=== PATIENT | male | born 1955 | race Caucasian/White ===

== ENCOUNTER 2017-12-25 09:36 | Outpatient (REF) | payer OTHER, SELFPAY ==
[2017-12-25 14:27] LABS: COMMENT (LAB VIEW ONLY) 37.92 mg/dL; Microalb ug/mg Crea 17.9 ug/mg Cr
== END 2017-12-25 09:56 ==
LOC: NCHCN 09:36
PROVIDERS: PCP Family Medicine; Visit Provider Family Medicine
DX: E11.9 Type 2 diabetes mellitus without complications (principal)
CPT/HCPCS: 82043; 82570

== ENCOUNTER 2018-04-18 00:44 | Outpatient (CLI) | payer OTHER, SELFPAY ==
--- NOTE | 2018-04-18 08:00 | DI.NM_ITS ---
SYMPTOMS/DIAGNOSIS: GASTROPARESIS DIABETICORUM, E11.43, INSULIN-DEPENDENT DIABETES MELLITUS WITH STOMACH PAIN AND NAUSEA AFTER EATING, INITIALLY RESPONDED TO METOCLOPRAMIDE, CONFIRM GASTROPARESIS GASTRIC EMPTYING STUDY: The examination was conducted according to the usual protocol. The patient ate 4 ounces of eggs, 2 pieces of bread and 8 ounces of water. The history is that of a diabetic with increasing abdominal pain over a number of months. 1.0 mCi of sulfur colloid was mixed into the egg breakfast. An immediate image and one- hour, two-hour and [id number] images were obtained. At one hour, there is a 29.5% residual; at two hours, there is an 8% residual; and at four hours 3.6% residual is identified. It is noted that the radioactive meal was rapidly passed from the stomach into the small bowel and the possibility of dumping syndrome is raised. At [facility], the normal range is at one hour 37-90% residual, at two hours 30-60% residual and at four hours 0-10% residual.
== END 2018-04-18 01:04 ==
PROVIDERS: PCP Family Medicine; Visit Provider Family Medicine
DX: E11.43 Type 2 diabetes mellitus with diabetic autonomic (poly)neuropathy (principal); Z79.4 Long term (current) use of insulin; R10.9 Unspecified abdominal pain; R11.0 Nausea
CPT/HCPCS: 78265

== ENCOUNTER 2018-09-02 00:07 | Outpatient (CLI) | payer OTHER, SELFPAY ==
--- NOTE | 2018-09-02 05:45 | MERGEMPI_ITS ---
*[facility]* *[facility]* [address] [place] [address] Myocardial Perfusion Imaging - SPECT Aaron protocol Date of study: 09/02/2018 *PATIENT PRESENTATION* Height: 165.1cm (65in) Blood Pressure: Weight: 78.6kg (173lb) BSA: 1.92m^2 Referring physician: Sunday Benson MD Ordering physician: Rene Austin Impressions: Normal perfusion by Tc99m Sestamibi Imaging. Summary: 1. Myocardial perfusion imaging: No myocardial perfusion defects noted. 2. The calculated left ventricular ejection fraction after stress: 64%. 3. Stress: The target heart rate was achieved. Indication: R07.9. History: REASON FOR VISIT: EXERTIONAL LEFT SIDED CHEST PAINS WITH SOME RADIATION DOWN INTO HIS LEFT ARM SINCE THE WINTER. THIS PAIN WILL SUBSIDE WITH REST. SHORTNESS OF BREATH WHEN WALKING UP STAIRS. Risk factors: OCCASIONAL MARIJUANNA SMOKER. Current tobacco use. Hypertension. Diabetes mellitus. Cholesterol: 97mg/dl. HDL: 33mg/dl. LDL: 56mg/dl. Triglycerides: 34mg/dl. ALLERGIES: NO KNOWN ALLERGIES. MEDICATIONS: METOPROLOL SUCCINATE ER 25 MG DAILY (PT HAS BEEN ASKED TO STOP TAKING THIS PILL FOR NOW) ATORVASTATIN 80 MG DAILY (PT HAS BEEN ASKED TO STOP TAKING THIS PILL FOR NOW). LISINOPRIL 10 MG DAILY. ISOSORBIDE MONONITRATE 60 MG DAILY. INSULIN GLARGINE 20 UNITS SQ Q HS. GLIMEPIRIDE 2 MG DAILY. FERROUS SULFATE 325 MG DAILY. EMPAGLIFLOZIN 25 MG DAILY. ASPIRIN 81 MG DAILY. PANTAPRAZOLE 20 MG DAILY. Imaging Technique: Protocol: Aaron protocol. Acquisition: Gated SPECT; 1 day - rest/stress. The patient was imaged in the supine position. Attenuation correction used. Isotope administration: - Rest. Tc[99m]-sestamibi. Dose: 10.5mCi. Injection time: 08:20 AM. Injection to stress time: 00:45. - Stress. Tc[99m]-sestamibi. Dose: 31.4mCi. Injection time: 10:10 AM. 1-2 min before end of exercise Baseline ECG: SINUS BRADYCARDIA. HR 59 BPM. Stress protocol: + +---+ + !Stage !HR !BP (mmHg) ! + +---+ + !Baseline supine !59 !128/80 (96) ! + +---+ + !Baseline standing !52 !140/62 (88) ! + +---+ + !Stage I; 1.7mph, 10degrees; 3 min !104!142/82 (102)! + +---+ + !Stage II; 2.5mph, 12degrees; 3 min !115!160/80 (107)! + +---+ + !Stage III; 3.4mph, 14degrees; 3 min!128!190/88 (122)! + +---+ + !Stage IV; 4.2mph, 16degrees; 3 min !136! ! + +---+ + !Peak stress !141! ! + +---+ + !Recovery; 1 min !103!170/50 (90) ! + +---+ + !Recovery; 3 min !87 !160/70 (100)! + +---+ + !Recovery; 6 min !78 !128/76 (93) ! + +---+ + * Stress results: Maximal heart rate during stress was 141bpm (89% of maximal predicted heart rate). The maximal predicted heart rate was 158bpm. The target heart rate was achieved. The rate-pressure product for the peak heart rate and blood pressure was 73158ki Hg/min. Stress ECG: TREADMILL PORTION OF STRESS TEST ENDED IN 10 MINUTES & 10 SECONDS DUE TO FATIGUE. NORMAL HEART RATE AND BLOOD PRESSURE RESPONSE TO EXERCISE. MAX HR = 141 % OF TARGET = 89 NO ECTOPY APPROXIMATE METS ACHIEVED = 11.43 LEFT SIDED CHEST PAIN WITH RADIATION INTO LEFT ARM DESCRIBED A 4 OUT OF 10 DURING PEAK EXERCISE. CHEST PAIN DOWN TO 2 OUT OF 10 NOW RADIATING INTO BOTH LEFT AND RIGHT ARMS AFTER 2 MINUTES OF RECOVERY PERIOD. CHEST PAIN SUBSIDED AT 3 MINUTES RECOVERY PERIOD. NO SIGNIFICANT ST SEGMENT CHANGES. ABOVE AVERAGE FUNCTIONAL CAPACITY FOR EXERCISE. Myocardial perfusion: Imaging information: gated. No myocardial perfusion defects noted. Ventricular Function (Wall Motion): The calculated left ventricular ejection fraction after stress: 64%. Study data: Sunday Benson MD supervised and was readily available during the procedure. This study was interpreted by [facility]. Study status: Routine. Consent: The risks, benefits, and alternatives to the procedure were explained to the patient and informed consent was obtained. Procedure: Initial setup. A baseline ECG was recorded. Surface ECG leads and manual cuff blood pressure measurements were monitored. Heart sounds: Normal. Lung sounds: Normal. Treadmill exercise testing was performed using the Aaron protocol. Study completion: All catheters inserted during the procedure were removed. The patient tolerated the procedure well and was discharged from the lab. Discharge: The patient left the laboratory in stable condition. Birthdate: Patient birthdate: 1955. Sex: Gender: male. Study date: Study date: 09/02/2018. Study time: 00:01 AM. Electronically signed by Sunday Benson MD 09/02/2018 18:06
== END 2018-09-02 00:27 ==
PROVIDERS: PCP Family Medicine; Visit Provider Student in an Organized Health Care Education/Training Program
DX: R07.9 Chest pain, unspecified (principal); R06.02 Shortness of breath
CPT/HCPCS: 78452; 93017

== ENCOUNTER 2018-10-08 06:55 | Day surgery (SDC) | payer OTHER, SELFPAY ==
--- NOTE | 2018-10-08 06:42 | W.COLOREPORT ---
Date of service: 10/08/18 Time of Service: 08:42 Colonoscopy Report Date of procedure: 10/08/18 Pre-op diagnosis general: Colon Cancer screening for + Cologuard Post-op diagnosis procedure note: other (? polyp in the transverse colon, diverticulosis) Procedure: Colonoscopy with bx Surgeon: Taina Kwon Anesthesia proc note operative: other (General/ ASA 2/Mary Lou Anthony, HUDSON) Estimated blood loss (mL): 2 Pathology: other (Transverse colon bx) Complications: None Disposition: same day Indications: Mr. Willett is a pleasant 63 year old male seen in the office for a colonoscopy. He had a positive Cologuard test. He has no family history of colon cancer that he is aware of. Risks, benefits and complications have been reviewed. Complications include but are not limited to bleeding, pain, perforation, missed small lesion/polyp, sore throat, aspiration and adverse reaction to the medications. Questions were entertained and answered to their satisfaction and they wished to proceed. No guarantees were given or implied. Prep: Miralax/Dulcolax Procedure Start Time: 08:42 Procedure End Time: 09:12 Retraction Time: 18 minutes Findings: In the transverse colon there was a prominent area ? polyp and this was removed with forceps. Mild diverticulosis noted in the descending and sigmoid colon Procedure Description: After informed consent was obtained the patient was taken to the procedure room and placed in a left decubitous position. Monitors were applied and a time out was done. The patients name, date of , procedure, allergies to medications and metal in their body was reviewed. The patient was then sedated. Once sedated and comfortable a rectal exam was done. External exam was normal. Internal exam revealed a normal sphincter tone and no palpable masses. Prostate felt smooth. The scope was then introduced and retro-flexed. No internal hemorrhoids, polyps or masses were identified. The scope was then advanced to the cecum with some difficulty due to tortuousity. The TI and appendiceal orifice were identified. The prep was adequate. The scope was then slowly retracted over 18 minutes back into the rectum. A biopsy was done of a prominent area in the transverse colon on a fold. The scope was removed and the patient was woken up and taken back to Same day surgery in stable condition. The patient tolerated the procedure well and there were no immediate complications. Follow up: The patient should follow up in 3-5 years unless they develop changes in bowel habits or other new gastrointestinal complaints.
--- NOTE | 2018-10-08 06:45 | W.PM.DSUDISC ---
Discharge Plan Disposition Patient Disposition: HOME Condition: Good Discharge Details Reason For Visit: Colon Cancer Screening Attending Provider: Taina Kwon Primary Care Provider: Naman Mckeon Home Meds and New Rx's Prescriptions: Continued Basaglar KwikPen U-100 Insulin 100 unit/mL (3 mL) insulin pen 36 unit SC HS RF: 0 Jardiance 25 mg tablet 25 mg PO DAILY RF: 0 aspirin 81 MG tablet,chewable 81 mg PO DAILY RF: 0 glimepiride 2 MG tablet 4 mg PO DAILY RF: 0 lisinopril 10 MG tablet 10 mg PO DAILY RF: 0 acetaminophen [Mapap Extra Strength] 500 MG tablet 1,000 mg PO Q6H PRN PRNRF: 0 ferrous sulfate 325 MG tablet 325 mg PO DAILY Qty: 100 RF: 0 atorvastatin 80 mg Tablet 80 mg PO QHS RF: 0 Discontinued metoprolol succinate 25 mg tablet extended release 24 hr 25 mg PO DAILY RF: 0 bisacodyl [Dulcolax (bisacodyl)] 5 mg tablet,delayed release (DR/EC) 5 mg PO ONCE Qty: 4 RF: 0 polyethylene glycol 3350 17 gram powder in packet 255 g PO DAILY Qty: 15 RF: 0 isosorbide mononitrate 60 MG tablet extended release 24 hr 60 mg PO DAILY RF: 0 Discharge Instructions Instructions: Colonoscopy (GEN), Diverticulosis (ED) Additional Instructions: Findings: ? polyp Diverticulosis Follow up: 3-5 years Please call if you develop: fevers >101.5 Nausea or Vomiting Abdominal pain that is not transient DAY SURGERY UNIT POST COLONOSCOPY INSTRUCTIONS 1. Because there will be medication in your system for the next 24 hours, you may feel a little sleepy. Your coordination will be affected. Therefore: a. Do not drive or operate dangerous equipment for 24 hours. b. Do not drink alcohol beverages for 24 hours (not even beer). c. Plan to go home and rest for the day. 2. Generally there are no restrictions on your activity after a day or so has gone by, but you may feel a bit fatigued for a few days. 3 After you arrive home you may have a light meal and return to a normal diet as you can tolerate it without feeling sick to your stomach. 4. After surgery, you may feel pain or discomfort. This should be only transient, but if it persists please contact your doctor. 5. If there are any questions regarding the findings of your procedure, please feel free to contact your doctor. 6. If you are unable to contact your doctor with a problem, contact the hospital at [phone]. 7. Continue all your regular medications unless directed otherwise. I understand the above instructions and have no questions. Signature of Patient or Responsible Adult Escort Date/Time Name of Responsible Adult Escort Signature of Nurse Date/Time Activity:: Activity as Tolerated Diet:: High Fiber diet Discharge Orders Discharge Orders: Discharge Order (Routine); Ordered 10/08/18 Ordered By: Taina Kwon DS: Diagnosis Discharge Diagnosis (1) History of colonoscopy: Status: Chronic (2) Diverticulosis large intestine w/o perforation or abscess w/o bleeding: Status: Acute
[2018-10-08 07:39] VITALS: BP 122/74; PULSE 60; RESP 14; TEMP 35.1; O2SAT 100
[2018-10-08] MEDS: Lactated Ringers 1,000 ML 80 ML IV (08:28)
--- NOTE | 2018-10-08 09:05 | BOWEL_PTH ---
PATIENT: Vincent Willett LOC: [facility] U#:[id number] AGE/SX: 63/M ROOM: RE10/08/[address]: Taina Kwon MD : 1955 BED: DIS: 10/08/2018 SPEC #: [id number] RECD: 10/08/18 12:51 STATUS: JUSTINA REQ #: [id number] VALERIO: 10/08/18 09:[address]: Taina Kwon DEPT: Surgical Specimen RECD BY: Cherry Banks ENTERED: 10/08/18 12:52 SP TYPE: Bowel OTHR DR: Naman Mckeon Tissues: 1 - BIOPSY BOWEL Procedures: GROSS AND MICRO LEVEL 4 Comments: [id number]
[2018-10-08 10:20] VITALS: BP 126/76; PULSE 71; RESP 16; TEMP 35.7; O2SAT 100
== END 2018-10-08 10:20 | disposition home or self-care (01) ==
PROVIDERS: PCP Family Medicine; Visit Provider Surgery
PROC: 0DJD8ZZ Inspection of Lower Intestinal Tract, Via Natural or Artificial Opening Endoscopic (ICD-10-PCS; CPT 45378; principal; 2018-10-08 08:30)
DX: R19.5 Other fecal abnormalities; D12.3 Benign neoplasm of transverse colon; K63.89 Other specified diseases of intestine; E11.9 Type 2 diabetes mellitus without complications; Z79.4 Long term (current) use of insulin; I10 Essential (primary) hypertension
CPT/HCPCS: 45380; 88305

== ENCOUNTER 2019-01-14 18:12 | Outpatient (REF) | payer OTHER, SELFPAY ==
[2019-01-14 19:58] LABS: ALT 66 U/L (16-63); AST 25 U/L (15-37); Albumin 4.3 g/dL (3.4-5.0); Alkaline Phosphatase 80 U/L (46-116); Anion Gap 9.7 mmol/L (3-11); BUN 22 mg/dL (7-18); Bilirubin, Total 0.5 mg/dL (0.2-1.0); CO2 27.3 mmol/L (21.0-32.0); CREATININE 0.97 mg/dL (0.70-1.30); Calcium 9.1 mg/dL (8.5-10.1); Chloride 102 mmol/L (98-107); Glucose 129 mg/dL (70-100); Potassium 4.3 mmol/L (3.5-5.1); Sodium 139 mmol/L (136-145); Total Protein 8.2 g/dL (6.4-8.2)
== END 2019-01-14 18:32 ==
LOC: NCHCN 18:12
PROVIDERS: PCP Family Medicine; Visit Provider Family Medicine
DX: E11.9 Type 2 diabetes mellitus without complications (principal); I10 Essential (primary) hypertension
CPT/HCPCS: 80053

== ENCOUNTER 2019-05-27 15:24 | Outpatient (REF) | payer BC, SELFPAY ==
[2019-05-27 18:41] LABS: HCT 44.1 % (40.0-50.0); HGB 14.9 g/dL (13.5-17.5); Mean Corp. HGB Concentration 33.8 g/dL (32.0-36.0); Mean Corpuscular Hemoglobin 30.3 pg (27.0-33.0); Mean Corpuscular Volume 89.8 fL (80-95); Mean Platelet Volume 14.1 fL (8.0-11.0); Platelet Count 183 x1000/uL (130-400); RBC 4.91 m/cumm (4.50-6.00); RBC Distribution Width 12.6 % (11.8-14.1); White Blood Cell Count 7.17 k/cumm (4.4-10.8)
[2019-05-27 19:26] LABS: ALT 58 U/L (16-63); AST 23 U/L (15-37); Albumin 4.1 g/dL (3.4-5.0); Alkaline Phosphatase 68 U/L (46-116); Anion Gap 10.2 mmol/L (3-11); BUN 24 mg/dL (7-18); Bilirubin, Total 0.5 mg/dL (0.2-1.0); CO2 24.8 mmol/L (21.0-32.0); Calcium 8.9 mg/dL (8.5-10.1); Calculated LDL 61 mg/dL (<100); Chloride 105 mmol/L (98-107); Cholesterol 103 mg/dL (<200); Glucose 80 mg/dL (74-106); HDL Cholesterol 31 mg/dL (40-60); Sodium 140 mmol/L (136-145); TSH (W/Ref FT4) 0.85 uIU/mL (0.36-3.74); Total Protein 7.8 g/dL (6.4-8.2); Triglyceride 57 mg/dL (<150); Vitamin B12 717 pg/mL (193-986)
[2019-05-29 09:40] LABS: Hepatitis C Ab w Rflx HCV PCR Negative (Negative)
[2019-05-29 10:24] LABS: Hepatitis B Surface Ag Negative (Negative)
== END 2019-05-27 15:44 ==
LOC: NCHCN 15:24
PROVIDERS: PCP Family Medicine; Visit Provider Family Medicine
DX: R41.3 Other amnesia (principal); Z00.00 Encounter for general adult medical examination without abnormal findings; Z11.59 Encounter for screening for other viral diseases; R74.8 Abnormal levels of other serum enzymes; E11.9 Type 2 diabetes mellitus without complications; I25.10 Atherosclerotic heart disease of native coronary artery without angina pectoris
CPT/HCPCS: 80053; 80061; 85027; 86803; 87340; 82607; 84443

== ENCOUNTER 2019-07-25 14:02 | Emergency (ER) | payer BC, SELFPAY ==
[2019-07-25 14:08] VITALS: BP 157/99; PULSE 96; RESP 16; TEMP 36.6; O2SAT 97
[2019-07-25 14:38] LABS: Bilirubin Negative (Negative); Blood Negative (Negative); Clarity Clear (Clear); Glucose 500 mg/dL (Negative); Ketones Negative (Negative); Leukocyte Esterase Negative (Negative); Nitrite Negative (Negative); Specific Gravity 1.015 (1.005-1.025); Urobilinogen 0.2 EU/dL (Up TO 0.2); pH 5.5 (5-8)
--- NOTE | 2019-07-25 14:42 | W.ED.GENAD ---
Discharge Plan Disposition Patient Disposition: HOME Condition: Stable Discharge Details Chief Complaint: Abd Prob Clinical Impression: Abdominal pain, Diverticulosis Primary Care Provider: Naman Mckeon ED Provider: Kostas Johnson Home Meds and New Rx's Prescriptions: No Action Jardiance 25 mg tablet 25 mg PO DAILY RF: 0 Basaglar KwikPen U-100 Insulin 100 unit/mL (3 mL) insulin pen 30 unit SC HS RF: 0 lisinopril 10 mg tablet 5 mg PO DAILY RF: 0 metoprolol succinate 25 mg capsule,sprinkle,ER 24hr 12.5 mg PO DAILY RF: 0 atorvastatin 80 mg tablet 40 mg PO QHS RF: 0 aspirin 81 MG tablet,chewable 81 mg PO DAILY RF: 0 glimepiride 2 MG tablet 4 mg PO DAILY RF: 0 acetaminophen [Mapap Extra Strength] 500 MG tablet 1,000 mg PO Q6H PRN PRNRF: 0 Discharge Instructions Instructions: Abdominal Pain (ED) Additional Instructions: At this time your CT does not show any emergent process. It does show that you have diverticulosis without acute diverticulitis. There is moderately excessive colonic stool content. Like we discussed, [id number] stool softeners may be beneficial as well as a diet high in fiber and increasing your liquids. Please watch for new or worsening symptoms and return to the ER for any concerns. I do recommend that you reach back out to your surgical team on Sunday to discuss your ongoing discomfort. I also recommend speaking with your primary care provider on Sunday for prompt outpatient reevaluation Referrals: Maureen Delarosa DO [OSTEOPATHIC DOCTOR] - Discharge Data Discharge Date/Time-TO BE ENTERED AT DEPARTURE: 07/25/19 18:34 Medical Decision Making <TISH Bullock - Last Filed: 07/26/19 11:25> Patient is a pleasant 64-year-old male presents today with chief complaint of left lower quadrant pain. He reports that he has had this pain intermittently for the past year. He does have a history of inguinal hernia repair he believes with mesh placement. States that this approximate 30 years ago. States the pain does come on when he is mobile. States that over the past few days the pain has become more persistent. States that he is also had associated diminished appetite. He denies any fevers or chills. States the pain is now along the entirety of the left side more so than just in the left inguinal area. States the pain does radiate into the left testicle. Denies any increased frequency, urgency. No hematuria. Denies any dysuria. Aside from the 2 hernia repairs in the abdomen, no previous abdominal surgeries. Denies any testicular trauma. Was evaluated by general surgery prior to arrival who was concerned for potential diverticulitis is in here for further evaluation. On exam, patient is resting comfortably. He is quite tender on the left lower side as well as the left CVA. No peritoneal findings. No rebound or guarding. He has noticed mild tenderness in the left scrotu but no erythema, warmth or swelling. No palpable area of hernia. Patient is primarily concerned that there may be something wrong with mesh of his previous hernia repair as the pain is located over the inguinal hernia but also extends upward more towards the left lower quadrant. At the end of my shift, Kostas Johnson PA-C with imaging and labs pending. <TISH Strickland - Last Filed: 07/25/19 18:57> I assumed care of this 64-year-old gentleman at shift change from [facility]. Patient has had chronic left lower quadrant discomfort ever since he had a hernia repair however he reports to me worsening over the past 4 weeks. He was seen by surgery today for evaluation of this discomfort and sent to the ER for further work-up as concern for diverticulitis. Please see initial HPI for full presentation. Patient appears well, nontoxic, no acute distress. Head normocephalic, moist mucous membranes, lungs clear to auscultation, heart regular rate and rhythm, abdomen is soft, bowel sounds equal and present throughout. There is diffuse mild left lower quadrant and flank discomfort but there is no guarding rebound or rigidity. His genitals appear normal on inspection, he does have mild left testicle discomfort to palpation. I am unable to palpate an obvious hernia. Cremasterics reflex present bilaterally. Laboratory values reveal a white count of 8.19. Lipase is minimally elevated at 400 however his examination is not consistent with acute pancreatitis. Urinalysis unremarkable except for [address] imaging unremarkable for emergent process. I discussed the findings with patient. He denies drinking alcohol and denies a history of pancreatitis. Patient does report that he has been constipated and been taking [id number]-[id number] stool softeners for that. Discussed that he has diverticulosis without evidence of diverticulitis or any obvious emergent surgical etiology. We discussed options. He reports that currently he is feeling improvement and is comfortable discharge home. He does believe that his pain stems from his previous surgery and related to his previous inguinal hernia and/or mesh. Patient is comfortable discharge at this time and we discussed the importance of outpatient surgical follow-up, recommend that he contact his surgical team on Sunday and he was encouraged to return to the ER for new or worsening symptoms. Medical Records Medical records reviewed: Yes I reviewed the patient's medical records. Imaging Data Radiologic Study: Attestation: I personally reviewed and interpreted this imaging study as follows: Imaging: CT Scan Radiologist's impression: CT abdomen and pelvis with contrast read by virtual radiology as negative for acute abdominal pelvic pathology. There was diffuse colonic diverticulosis without diverticulitis. Moderately excessive colonic stool content. No evidence of appendicitis. The prostate demonstrates moderate nonspecific enlargement, the seminal vesicles are normal. Lab Data Lab results reviewed: Yes I reviewed the patient's lab results. Lab results narrative: Laboratory Tests Range/Units 07/25/19 07/25/19 07/25/19 14:30 14:43 14:43 WBC (4.4-10.8) k/cumm 8.19 RBC (4.50-6.00) m/cumm 5.44 Hgb (13.5-17.5) g/dL 16.6 Hct (40.0-50.0) % 46.8 MCV (80-95) fL 86.0 MCH (27.0-33.0) pg 30.5 MCHC (32.0-36.0) g/dL 35.5 RDW (11.8-14.1) % 12.3 Plt Count (130-400) x1000/uL 189 MPV (8.0-11.0) fL 12.8 H Immature Gran % % 0.1 Neutrophils % 59.1 Lymphocytes % 30.2 Monocytes % 9.3 Eosinophils % 1.1 Basophils % 0.2 Absolute Neutrophils (1.2-6.7) k/cumm 4.84 Absolute Lymphocytes (1.2-3.4) k/cumm 2.47 Absolute Monocytes (0.11-0.7) k/cumm 0.76 H Absolute Eosinophils (0.0-0.7) k/cumm 0.09 Absolute Basophils (0.0-0.2) k/cumm 0.02 Sodium (136-145) mmol/L 136 Potassium (3.5-5.1) mmol/L 4.1 Chloride (98-107) mmol/L 99 Carbon Dioxide (21.0-32.0) mmol/L 26.0 Anion Gap (3-11) mmol/L 11.0 BUN (7-18) mg/dL 26 H Creatinine (0.70-1.30) mg/dL 1.01 Estimated GFR/1.73 m2 (mL/min/1.73m2) >= 60.00 Glucose (74-106) mg/dL 251 H Calcium (8.5-10.1) mg/dL 9.4 Magnesium (1.8-2.4) mg/dL 2.2 Total Bilirubin (0.2-1.0) mg/dL 0.4 AST (15-37) U/L 19 ALT (16-63) U/L 54 Alkaline Phosphatase (46-116) U/L 79 Total Protein (6.4-8.2) g/dL 8.8 H Albumin (3.4-5.0) g/dL 4.3 Lipase (73-393) U/L 400 H Urine Color (Yellow) Yellow Urine Clarity (Clear) Clear Urine pH (5-8) 5.5 Ur Specific Rosebud (1.005-1.025) 1.015 Urine Protein (Negative) mg/dL Negative Urine Ketones (Negative) mg/dL Negative Urine Blood (Negative) Negative Urine Nitrite (Negative) Negative Urine Bilirubin (Negative) Negative Urine Urobilinogen (Up TO 0.2) EU/dL 0.2 Ur Leukocyte Esterase (Negative) Negative Urine Glucose (Negative) mg/dL 500 H Range/Units 07/25/19 15:02 WBC (4.4-10.8) k/cumm RBC (4.50-6.00) m/cumm Hgb (13.5-17.5) g/dL Hct (40.0-50.0) % MCV (80-95) fL MCH (27.0-33.0) pg MCHC (32.0-36.0) g/dL RDW (11.8-14.1) % Plt Count (130-400) x1000/uL MPV (8.0-11.0) fL Immature Gran % % Neutrophils % Lymphocytes % Monocytes % Eosinophils % Basophils % Absolute Neutrophils (1.2-6.7) k/cumm Absolute Lymphocytes (1.2-3.4) k/cumm Absolute Monocytes (0.11-0.7) k/cumm Absolute Eosinophils (0.0-0.7) k/cumm Absolute Basophils (0.0-0.2) k/cumm Sodium (136-145) mmol/L Potassium (3.5-5.1) mmol/L Chloride (98-107) mmol/L Carbon Dioxide (21.0-32.0) mmol/L Anion Gap (3-11) mmol/L BUN (7-18) mg/dL Creatinine (0.70-1.30) mg/dL Estimated GFR/1.73 m2 (mL/min/1.73m2) Glucose (74-106) mg/dL Calcium (8.5-10.1) mg/dL Magnesium (1.8-2.4) mg/dL Total Bilirubin (0.2-1.0) mg/dL AST (15-37) U/L ALT (16-63) U/L Alkaline Phosphatase (46-116) U/L Total Protein (6.4-8.2) g/dL Albumin (3.4-5.0) g/dL Lipase (73-393) U/L Urine Color (Yellow) Cancelled Urine Clarity (Clear) Cancelled Urine pH (5-8) Cancelled Ur Specific Rosebud (1.005-1.025) Cancelled Urine Protein (Negative) mg/dL Cancelled Urine Ketones (Negative) mg/dL Cancelled Urine Blood (Negative) Cancelled Urine Nitrite (Negative) Cancelled Urine Bilirubin (Negative) Cancelled Urine Urobilinogen (Up TO 0.2) EU/dL Cancelled Ur Leukocyte Esterase (Negative) Cancelled Urine Glucose (Negative) mg/dL Cancelled HPI <TISH Bullock - Last Filed: 07/26/19 11:25> General Mode of arrival: ambulatory. Date/Time Provider Initiated Documentation: 07/25/19 14:12. Limitations to Documentation: no limitations. Information obtained by: patient and RN notes reviewed. History of Present Illness 64 year old M presents to the emergency department with the chief complaint of Left lower quadrant pain, described as moderate, with intensity rated at 5. Quality is described as aching, and is localized to the abdomen. Patient reports no radiation. Patient started experiencing this year(s) (1) and it has been intermittent (Increased in recent days with more persistent pain and diminished appetite). No relieving factors improve symptom(s), Movement worsens symptoms . Patient notes loss of appetite; denies chest pain, cough, fever/chills, headaches, nausea/vomiting, rash, shortness of breath and weakness. Patient did receive the following treatments prior to arrival, none Related Data Home Medications Medication Instructions Recorded Confirmed aspirin 81 mg PO DAILY 05/28/12 07/25/19 glimepiride 4 mg PO DAILY 07/14/15 07/25/19 acetaminophen [Mapap Extra 1,000 mg PO Q6H PRN PRN tab 05/20/16 07/25/19 Strength] empagliflozin 25 mg tablet 25 mg PO DAILY 08/21/18 07/25/19 atorvastatin 80 mg tablet 40 mg PO QHS tab 07/25/19 07/25/19 insulin glargine 100 unit/mL (3 30 unit SC HS ml 07/25/19 07/25/19 mL) subcutaneous pen lisinopril 10 mg tablet 5 mg PO DAILY tab 07/25/19 07/25/19 metoprolol succinate 25 mg capsule 12.5 mg PO DAILY cap 07/25/19 07/25/19 sprinkle, ext. release 24 hr Previous Rx's Medication Instructions Recorded acetaminophen [Mapap Extra 1,000 mg PO Q6H PRN PRN tab 05/20/16 Strength] Allergies Allergy/AdvReac Type Severity Reaction Status Date / Time No Known Allergies Allergy Unverified 07/25/19 14:17 General Stated Complaint: Abd Prob ALINA: 3 Review of Systems <TISH Bullock - Last Filed: 07/26/19 11:25> Constitutional Constitutional: Reports as per HPI, Denies chills, Denies fatigue, Denies fever(s) and Denies headache(s) ENT Ears, Nose, Mouth, and Throat: Denies headache(s) Cardiovascular Cardiovascular: Reports as per HPI, Denies chest pain and Denies dyspnea Respiratory Respiratory: Reports as per HPI, Denies cough and Denies dyspnea Gastrointestinal Gastrointestinal: Reports as per HPI Genitourinary Genitourinary: Denies system reviewed and no additional complaints, except as documented (patient denies any change in urinary habits) Musculoskeletal Musculoskeletal: Reports as per HPI and Denies back pain Integumentary/Breasts Skin/Breast: Reports as per HPI and Denies rash Neurologic Neurologic: Reports as per HPI and Denies headache(s) Endocrine Endocrine: Denies fatigue PFSH <TSIH Bullock - Last Filed: 07/26/19 11:25> Medical History Anemia Angina pectoris, unspecified (Chronic) Atherosclerotic coronary vascular disease 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) Balanitis (Acute) BPH loc w urin obs/LUTS (Acute) Cervical disc disease with myelopathy (Acute) Chronic GERD (Acute) Depression (Chronic) Diabetes mellitus Diverticulosis large intestine w/o perforation or abscess w/o bleeding (Acute) Dyspepsia (Acute) Dysuria (Acute) Elevated liver enzymes (Acute) Enlarged prostate (Acute) History of angina History of MRSA infection (Acute) HTN (hypertension) Hyperlipidemia (Acute) Liver nodule (Acute) LLQ abdominal pain (Acute) Memory impairment (Acute) Mixed hyperlipidemia Osteoarthritis (Chronic) Restless leg (Acute) Sleep disorder (Acute) Tubular adenoma of colon (Acute) Surgical History Amputation (07/14/15) RIGHT INDEX FINGER/DR. ARTEAGA History of cardiac catheterization (Chronic) History of colonoscopy (Chronic ~10/08/18) Repair of inguinal hernia Family History (Updated 10/04/18 @ 13:39 by Precious Brooks RN) Other Diabetes Social History Smoking/Tobacco Use Status: Never Alcohol Intake: current Alcohol Intake frequency: holidays/special occasions only Alcohol type: beer Drug use: Occasionally Substance use type: marijuana Details: patient states he uses for pain management. Do you feel safe at home: Yes Do you feel safe in your relationship?: Yes Exam <TISH Bullock - Last Filed: 07/26/19 11:25> Const General: cooperative, healthy appearing, comfortable, no acute distress and well developed Nutritional Appearance: average body habitus and well nourished Orientation: alert and awake [facility] Head: normal to inspection Mouth: moist mucous membranes Resp Effort & Inspection: normal respiratory effort, able to speak in complete sentences and no respiratory distress Auscultation: clear to auscultation bilaterally, no rales, no rhonchi and no wheezes Cardio Rate: regular rate Rhythm: regular rhythm Heart Sounds: S1 normal and S2 normal GI Inspection: normal to inspection, no edema, non-distended, no obesity, no visible herniation and no visible pulsation Palpation: soft, no hepatosplenomegaly, not firm, no guarding, no hernias, no masses, not rigid and tender in the LLQ; obturator sign negative, psoas sign negative and with no rebound tenderness Percussion: normal to percussion Auscultation: normal bowel sounds Male General Exam: Yes normal external exam, No ecchymosis, No edema, No erythema, No inguinal lymphadenopathy, No lacerations and No lesions Penis: normal penis Meatus: meatus normal Scrotum: scrotum normal, cremasteric reflex present, no ecchymosis, not edematous, not erythematous, no masses and no scrotal swelling Testes: normal, testicular lie normal, not enlarged, no epidiymal masses, no testicular mass, no testicular swelling and testicular tenderness (mild left testicular pain) Back/Spine/Pelvis Back: CVA tenderness (left) Skin General skin exam: no rashes or lesions noted Trauma: no lacerations or abrasions Neuro General: patient alert and patient awake Cognition: normal cognition Speech: speech normal Gait: normal gait Psych Appearance: grossly normal and well kempt Mental Status: mental status grossly normal Speech and Movement: speech and movement normal Course <TISH Bullock - Last Filed: 07/26/19 11:25> Vital Signs Vital signs: Vital Signs Temperature 36.6 C 07/25/19 14:08 Pulse 96 H 07/25/19 14:08 Respiratory Rate 16 07/25/19 14:08 Blood Pressure 157/99 H 07/25/19 14:08 Pulse Oximetry 97 07/25/19 14:08 Temperature 36.6 C 07/25/19 14:08 Temperature Source Skin 07/25/19 14:08 Pulse 96 H 07/25/19 14:08 Respiratory Rate 16 07/25/19 14:08 Respiratory Effort 07/25/19 14:15 Blood Pressure 157/99 H 07/25/19 14:08 Blood Pressure Position Sitting 07/25/19 14:08 Pulse Oximetry 97 07/25/19 14:08 Oxygen Delivery Method Room Air 07/25/19 14:08 Oxygen Flow Rate 0 07/25/19 14:08 Pain Level 5 07/25/19 14:08 Sign Out <TISH Bullock - Last Filed: 07/26/19 11:25> Sign Out Data: Sign Out Comment: Care transition to [place] Johnson PA-C with pending imaging and labs. Last updated by Lenora Doshi PA at 07/25/19 16:12
--- NOTE | 2019-07-25 14:45 | DI.CT_ITS ---
EXAM: CT ABDOMEN PELVIS W CLINICAL HISTORY: LLQ pain TECHNIQUE: Imaging Protocol: Axial computed tomography images with coronal and sagittal reformatted images were created and reviewed CONTRAST MATERIAL: Intravenous: Omnipaque 350 Contrast volume:100 mL Oral: Yes COMPARISON: UPPER ABD W/WO CONTRAST(P) from 05/17/2017 FINDINGS: ABDOMEN: Lung Bases: Normal where visualized. Liver: Normal density. No measurable mass. Portal, Superior Mesenteric, and Splenic Veins: Unremarkable. Gallbladder and Biliary Tract: No radiodense calculus or dilation. Pancreas: Normal density, no abnormal calcifications or inflammatory process. Spleen: Normal. Adrenals: No masses seen. Kidneys: Normal size, contour and axis. No radiodense stones or obstructive uropathy. No masses seen. Abdominal Aorta: Abdominal portion non-dilated. Mild atherosclerosis. Bowel: No obstruction or bowel wall thickening. Appendix is unremarkable. Peritoneal Cavity: No ascites, collection or mesenteric inflammatory response. Lymph Nodes: Within normal limits. Bones: Degenerative changes are present particularly at the L5-S1 disc space. Soft Tissues: Small fat containing right inguinal hernia. PELVIS: Bladder: Symmetric distention, no gross wall thickening. Reproductive Organs: Moderate enlarged prostate gland. Lymph Nodes: Within normal limits. Bones: Degenerative changes are present. IMPRESSION: No acute abdominal or pelvic process. RADIATION DOSE DELIVERED: Total DLP DATA REPOSITORY: All CT scans at this facility are submitted to the National Radiology Data Registry (NRDR) Dose Index Registry (DIR) with the [employer] (ACR). RADIATION OPTIMIZATION: All CT scans at this facility use at least one of these dose optimization te chniques: automated exposure control; mA and/or kV adjustment per patient size (includes targeted exa ms where dose is matched to clinical indication); or iterative reconstruction.
[2019-07-25] MEDS: Normal Saline 1,000 ML 1000 ML IV (15:09)
[2019-07-25 16:01] LABS: Abs Immature Grans 0.01 k/cumm (0.0-0.09); Absolute Basophil Count 0.02 k/cumm (0.0-0.2); Absolute Eosinophil Count 0.09 k/cumm (0.0-0.7); Absolute Lymphocyte Count 2.47 k/cumm (1.2-3.4); Absolute Monocyte Count 0.76 k/cumm (0.11-0.7); Absolute Neutrophil Count 4.84 k/cumm (1.2-6.7); Basophils % 0.2; Eosinophils % 1.1; HCT 46.8 % (40.0-50.0); HGB 16.6 g/dL (13.5-17.5); Immature Grans % 0.1 %; Lymphocytes % 30.2; Mean Corp. HGB Concentration 35.5 g/dL (32.0-36.0); Mean Corpuscular Hemoglobin 30.5 pg (27.0-33.0); Mean Platelet Volume 12.8 fL (8.0-11.0); Monocytes % 9.3; Neutrophils % 59.1; Platelet Count 189 x1000/uL (130-400); RBC 5.44 m/cumm (4.50-6.00); RBC Distribution Width 12.3 % (11.8-14.1); White Blood Cell Count 8.19 k/cumm (4.4-10.8)
[2019-07-25 16:17] VITALS: BP 139/72; PULSE 67; RESP 18; O2SAT 97
[2019-07-25 16:17] LABS: ALT 54 U/L (16-63); AST 19 U/L (15-37); Albumin 4.3 g/dL (3.4-5.0); Alkaline Phosphatase 79 U/L (46-116); BUN 26 mg/dL (7-18); Bilirubin, Total 0.4 mg/dL (0.2-1.0); CREATININE 1.01 mg/dL (0.70-1.30); Calcium 9.4 mg/dL (8.5-10.1); Chloride 99 mmol/L (98-107); Glucose 251 mg/dL (74-106); Lipase 400 U/L (73-393); Magnesium 2.2 mg/dL (1.8-2.4); Potassium 4.1 mmol/L (3.5-5.1); Sodium 136 mmol/L (136-145); Total Protein 8.8 g/dL (6.4-8.2)
[2019-07-25] MEDS: Breeza Beverage 473 ML BTL PO ×2 (16:55→16:56)
[2019-07-25] MEDS: Omnipaque 350 MG/ML 50 ML BTL PO (16:55)
[2019-07-25] MEDS: Omnipaque 350 MG/ML 100 ML BTL IJ (16:56)
[2019-07-25] MEDS: Normal Saline - Diluent 50 ML VIAL IV (16:57)
--- NOTE | 2019-07-25 17:00 | DI.VRAD_ITS ---
PROCEDURE INFORMATION: Exam: CT Abdomen And Pelvis With Contrast Exam date and time: 07/25/2019 2:58 PM Age: 64 years old Clinical indication: Pain; Other: Llq TECHNIQUE: Imaging protocol: Computed tomography of the abdomen and pelvis with intravenous contrast. Radiation optimization: All CT scans at this facility use at least one of these dose optimization techniques: automated exposure control; mA and/or kV adjustment per patient size (includes targeted exams where dose is matched to clinical indication); or iterative reconstruction. Contrast material: OMNIPAQUE 350; Contrast volume: 100 ml; Contrast route: IV; Other contrast: Oral, Omnipaque 350 + Breeza, 800 ml of Breeza, 50 ml of Omnipaque 350; COMPARISON: CT ABD PELVIS WITH CONTRAST 01/18/2015 10:07 AM FINDINGS: Lungs: The visualized portions of the lung bases demonstrate no acute disease. Liver: There is moderate enlargement of the liver. There is a diffuse decrease in hepatic parenchymal density, consistent with fatty infiltration. No acute liver pathology. No concerning liver lesions. Gallbladder and bile ducts: Normal. No calcified stones. No ductal dilation. Pancreas: Normal. No ductal dilation. Spleen: Normal. No splenomegaly. Adrenals: Normal. No mass. Kidneys and ureters: Normal. No hydronephrosis. Stomach and bowel: No bowel wall thickening, obstruction, or other acute pathology. Diffuse colonic diverticulosis is present. There is moderately excessive colonic stool content. Appendix: No evidence of appendicitis. Intraperitoneal space: Unremarkable. No free air. No significant fluid collection. Vasculature: The vasculature demonstrates diffuse mild atherosclerotic calcification. Lymph nodes: Unremarkable. No enlarged lymph nodes. Bladder: Unremarkable as visualized. Reproductive: The prostate demonstrates moderate nonspecific enlargement. The seminal vesicles are normal. Bones/joints: No acute skeletal pathology. Moderate multilevel degenerative changes of the spine, as manifested by multilevel anterior osteophytes and multilevel decrease in intervertebral disc space. Soft tissues: Small fat containing right inguinal hernia. IMPRESSION: Negative for acute abdominopelvic pathology. Dictated and Authenticated by: Maurilio Corea MD. Ordering:TOMMY Cooley MD
== END 2019-07-25 18:34 | disposition home or self-care (01) ==
PROVIDERS: Physician Assistant; Emergency Provider Physician Assistant; PCP Family Medicine
DX: R10.32 Left lower quadrant pain (principal); K57.30 Diverticulosis of large intestine without perforation or abscess without bleeding; E11.9 Type 2 diabetes mellitus without complications; Z79.4 Long term (current) use of insulin; I10 Essential (primary) hypertension
CPT/HCPCS: 36415; 80053; 83690; 96360; 99285; 74177; 81003; 83735; 85025; J3490; Q9967

== ENCOUNTER 2019-11-18 16:48 | Outpatient (REF) | payer BC, SELFPAY ==
[2019-11-18 19:43] LABS: Anion Gap 8.9 mmol/L (3-11); BUN 24 mg/dL (7-18); CO2 26.1 mmol/L (21.0-32.0); CREATININE 0.77 mg/dL (0.70-1.30); Calcium 9.2 mg/dL (8.5-10.1); Chloride 104 mmol/L (98-107); Creatine Kinase 73 U/L (39-308); Glucose 92 mg/dL (74-106); Magnesium 2.2 mg/dL (1.8-2.4); Potassium 4.3 mmol/L (3.5-5.1); Sodium 139 mmol/L (136-145); TSH (W/Ref FT4) 0.53 uIU/mL (0.36-3.74)
== END 2019-11-18 17:08 ==
LOC: NCHCN 16:48
PROVIDERS: PCP Family Medicine; Visit Provider Family Medicine
DX: M79.18 Myalgia, other site (principal); R52 Pain, unspecified
CPT/HCPCS: 80048; 82550; 83735; 84443

== ENCOUNTER → 2020-04-06 17:16 | Outpatient (REF) | payer BC, SELFPAY ==
[2020-04-06 15:11] LABS: Hemoglobin A1C 7.1 % (<5.7)
== END ==
LOC: NCHCN 17:16
PROVIDERS: PCP Family Medicine; Visit Provider Family Medicine
DX: E11.9 Type 2 diabetes mellitus without complications (principal)
CPT/HCPCS: 83036

== ENCOUNTER 2020-08-04 10:38 | Outpatient (REF) | payer BC, SELFPAY ==
[2020-08-04 16:31] LABS: Albumin 4.1 g/dL (3.4-5.0); Bilirubin, Total 0.4 mg/dL (0.2-1.0); Chloride 105 mmol/L (98-107); Potassium 4.3 mmol/L (3.5-5.1); Total Protein 7.9 g/dL (6.4-8.2)
[2020-08-04 17:03] LABS: ALT 61 U/L (16-63); AST 26 U/L (15-37); Alkaline Phosphatase 64 U/L (46-116); Anion Gap 10.3 mmol/L (3-11); BUN 30 mg/dL (7-18); CO2 24.7 mmol/L (21.0-32.0); CREATININE 0.8 mg/dL (0.70-1.30); Calcium 9.5 mg/dL (8.5-10.1); Cholesterol 177 mg/dL (<200); Glucose 98 mg/dL (74-106); HDL Cholesterol 46 mg/dL (40-60); Sodium 140 mmol/L (136-145)
[2020-08-04 17:07] LABS: Triglyceride < 25 mg/dL (<150)
[2020-08-04 17:17] LABS: LDL CHOLESTEROL 128 mg/dL (<100)
== END 2020-08-04 10:39 | disposition home or self-care (01) ==
LOC: NCHCN 10:38
PROVIDERS: PCP Family Medicine; Visit Provider Family Medicine
DX: E11.9 Type 2 diabetes mellitus without complications (principal); I25.10 Atherosclerotic heart disease of native coronary artery without angina pectoris; R74.8 Abnormal levels of other serum enzymes
CPT/HCPCS: 80053; 80061; 83721

== ENCOUNTER 2021-01-17 15:11 | Outpatient (REF) | payer BC, SELFPAY ==
[2021-01-19 14:31] LABS: COVID-19 RT-PCR UVMMC Result Negative (Negative)
== END 2021-01-17 15:12 | disposition home or self-care (01) ==
LOC: NCHCN 15:11
PROVIDERS: PCP Family Medicine; Visit Provider Family Medicine
DX: Z20.822 Contact with and (suspected) exposure to COVID-19 (principal); R05.8 Other specified cough
CPT/HCPCS: U0003

== ENCOUNTER 2022-08-03 14:45 | Outpatient (REF) | payer OTHER, SELFPAY ==
[2022-08-03 16:14] LABS: HCT 41.2 % (40.0-50.0); MCV 91 fL (80-95); Platelet Count 162 10^3/uL (130-400); RBC 4.51 10^6/uL (4.36-5.78); RDW 12.4 % (11.8-14.1); RDW-SD 41.4 fL
[2022-08-03 16:46] LABS: ALT 46 U/L (16-63); AST 28 U/L (15-37); Albumin 3.9 g/dL (3.4-5.0); Alkaline Phosphatase 61 U/L (46-116); Anion Gap 11.2 mmol/L (3-11); BUN 28 mg/dL (7-18); Bilirubin, Total 0.3 mg/dL (0.2-1.0); CO2 27.8 mmol/L (21.0-32.0); CREATININE 0.8 mg/dL (0.70-1.30); Calcium 9.2 mg/dL (8.5-10.1); Chloride 103 mmol/L (98-107); Estimated GFR 97.61 (mL/min/1.73m2); Glucose 108 mg/dL (74-106); Potassium 4.3 mmol/L (3.5-5.1); Sodium 142 mmol/L (136-145); TSH (W/Ref FT4) 0.76 uIU/mL (0.36-3.74); Total Protein 7.8 g/dL (6.4-8.2)
[2022-08-03 17:10] LABS: COMMENT (LAB VIEW ONLY) 72.11 mg/dL; Microalb ug/mg Crea 39.8 ug/mg Cr
[2022-08-04 09:12] LABS: PSA, Screening 2.4 ng/mL (<=4.5)
[2022-08-08 15:06] LABS: Testosterone, Free 7.27 ng/dL (3.47-13.0); Testosterone, Total 369 ng/dL (240-950)
== END 2022-08-03 14:46 | disposition home or self-care (01) ==
LOC: NCHCN 14:45
PROVIDERS: PCP Family Medicine; Visit Provider Family Medicine
DX: R53.83 Other fatigue (principal); R74.8 Abnormal levels of other serum enzymes; I10 Essential (primary) hypertension; E11.9 Type 2 diabetes mellitus without complications; N40.1 Benign prostatic hyperplasia with lower urinary tract symptoms
CPT/HCPCS: 80053; 84153; 84402; 84403; 85027; 82043; 82570; 83036; 84443

== ENCOUNTER 2023-04-16 10:12 | Outpatient (REF) | payer OTHER, SELFPAY ==
[2023-04-16 16:29] LABS: Hemoglobin A1C 9.4 % (<5.7)
== END 2023-04-16 10:13 | disposition home or self-care (01) ==
LOC: NCHCN 10:12
PROVIDERS: PCP Family Medicine; Visit Provider Family Medicine
DX: E11.9 Type 2 diabetes mellitus without complications (principal)
CPT/HCPCS: 83036

== ENCOUNTER 2023-09-12 13:02 | Outpatient (REF) | payer MEDICARE, SELFPAY ==
[2023-09-12 15:06] LABS: ALT 45 U/L (16-63); AST 22 U/L (15-37); Albumin 3.7 g/dL (3.4-5.0); Alkaline Phosphatase 70 U/L (46-116); Anion Gap 9.2 mmol/L (3-11); BUN 25 mg/dL (7-18); Bilirubin, Total 0.39 mg/dL (0.2-1.0); CO2 26.8 mmol/L (21.0-32.0); CREATININE 0.9 mg/dL (0.70-1.30); Calcium 8.8 mg/dL (8.5-10.1); Calculated LDL 140 mg/dL (<100); Chloride 104 mmol/L (98-107); Cholesterol 212 mg/dL (<200); Estimated GFR 93.61 (mL/min/1.73m2); Glucose 191 mg/dL (74-106); HDL Cholesterol 61 mg/dL (40-60); Potassium 4.3 mmol/L (3.5-5.1); Sodium 140 mmol/L (136-145); Total Protein 7.7 g/dL (6.4-8.2); Triglyceride 59 mg/dL (<150)
[2023-09-12 15:12] LABS: COMMENT (LAB VIEW ONLY) 66.71 mg/dL
[2023-09-12 15:15] LABS: Hemoglobin A1C 8.7 % (<5.7)
[2023-09-12 15:31] LABS: Microalb ug/mg Crea 145.1 ug/mg Cr
[2023-09-13 09:27] LABS: Hepatitis C Ab w Rflx HCV PCR Negative (Negative)
[2023-09-13 10:00] LABS: HIV-1/2 Ag & Ab Screen Negative (Negative)
[2023-09-13 12:32] LABS: Syphilis Serology (RPR) Negative (Negative)
== END 2023-09-12 13:03 | disposition home or self-care (01) ==
LOC: NCHCN 13:02
PROVIDERS: PCP Family Medicine; Visit Provider Physician Assistant
DX: E11.9 Type 2 diabetes mellitus without complications (principal); Z11.4 Encounter for screening for human immunodeficiency virus [HIV]; Z11.59 Encounter for screening for other viral diseases; Z11.3 Encounter for screening for infections with a predominantly sexual mode of transmission; Z01.84 Encounter for antibody response examination
CPT/HCPCS: 80053; 80061; 86803; 87389; 82043; 82570; 83036; 86592

== ENCOUNTER → 2024-01-25 07:15 | Outpatient (BNVA) | payer MEDICARE, SELFPAY | PROVIDERS: PCP Family Medicine; Referring Provider Family Medicine; Visit Provider Physical Therapy Assistant ==

== ENCOUNTER → 2024-02-14 10:11 | Outpatient (BNVA) | payer MEDICARE, SELFPAY | PROVIDERS: PCP Physician Assistant; Referring Provider Physician Assistant; Visit Provider Physical Therapy Assistant | DX: Z12.11 Encounter for screening for malignant neoplasm of colon (principal); Z86.0100 Personal history of colon polyps, unspecified; I25.10 Atherosclerotic heart disease of native coronary artery without angina pectoris; E11.9 Type 2 diabetes mellitus without complications ==

== ENCOUNTER 2024-03-07 10:37 | Day surgery (SDC) | payer MEDICARE, SELFPAY ==
--- NOTE | 2024-03-06 21:46 | W.COLOREPORT ---
Date of service: 03/07/24 Time of Service: 14:30 Colonoscopy Report Date of procedure: 03/07/24 Pre-op diagnosis general: adenomatous polyps Post-op diagnosis procedure note: same Surgeon: Maureen Delarosa Anesthesia Type: General:No Airway Estimated blood loss (mL): 2 Pathology: other Complications: None Disposition: same day Prep: Miralax/Dulcolax Retraction Time: 17 Procedure Description: After informed consent was obtained, explaining risks of the procedure, including but not limits to: bleeding, infections, complications of anesthesia, perforations (which may require antibiotics and /or surgery and stay in the hospital), and abdominal pain/cramping. The patient was taken to the procedure room and placed in a left decubitous position. Monitors were applied and a time out was done. The patients name, date of , procedure, allergies to medications and metal in their body was reviewed. The patient was then sedated. Once sedated and comfortable a rectal exam was done. External exam was normal. Internal exam revealed a normal sphincter tone and no palpable masses. The prostate -no palpable lesions. The previously lubricated Olympus scope was then introduced (see RN notes for scope number) and retrofelexed. No internal hemorrhoids were identified. The scope was then advanced to the cecum without difficulty. The TI and appendiceal orifice were identified. The scope was then slowly retracted over 17 minutes back into the rectum. Polyps: A flat, .5cm polyp was found at 30cm x2. This was removed with a cold biting forceps. All of the specimen was retrieved. There was a second 0.75 cm polyp on a long pedunculated stalk. This is removed with a cold snare. No clip is placed. All specimen is retrieved and no bleeding is noted. This will be sent to pathology. There is no bleeding noted from the polypectomy site. Diverticula: None the mucosa is pink and healthy w/ a normal vascular pattern. The scope was removed, and the patient was woken up and taken back to Same day surgery in stable condition. The patient tolerated the procedure well and there were no immediate complications. Follow up: The patient should follow up path pending, unless they develop changes in bowel habits or other new gastrointestinal complaints. [place] Bowel Prep [place] Bowel Prep Right Colon: 2 Left Colon: 3 Transverse Colon: 3 Total Score: 8
--- NOTE | 2024-03-06 21:48 | PDOC.DSDIS_ITS ---
Date of service: 03/07/24 Discharge Plan Disposition Patient Disposition: Home Condition: Good Discharge Details Reason For Visit: colon scope Attending Provider: Maureen Delarosa Primary Care Provider: Anival Shaver Home Meds and New Rx's Prescriptions: Continued Ozempic 0.25 mg or 0.5 mg(2 mg/1.5 mL) pen injector 0.5 mg subcut QWEEK citalopram 20 mg tablet 20 mg PO DAILY atorvastatin 20 mg tablet 20 mg PO DAILY insulin glargine [Basaglar KwikPen U-100 Insulin] 100 unit/mL (3 mL) insulin pen 56 unit subcut HS lisinopril 10 mg tablet 10 mg PO DAILY Discontinued bisacodyl [Dulcolax (bisacodyl)] 5 mg tablet,delayed release (DR/EC) 5 mg PO ONCE Qty: 4 0RF Rx Instructions: Take per colonoscopy instructions provided by ordering providers office polyethylene glycol 3350 17 gram/dose powder 17 g PO ONCE Qty: 238 0RF Rx Instructions: Take per colonoscopy instructions provided by ordering providers office Discharge Instructions Additional Instructions: DSU Colonoscopy Post- Op Instructions Instructions for Everyone who is given Anesthesia: For your safety, please do the following for the next twenty-four (24) hours: *Do Not operate a motor vehicle (car, truck, motorcycle, etc.) *Do Not drink alcoholic beverages or use any recreational drugs for the first 24 hours or while taking pain medications. The medications in your body may have a reaction that can be dangerous. *Do Not make any important decisions or sign any important papers. Findings: Colon polyps Follow up: My office will send you a letter in 3 to 4 weeks time with the results of the pathology and when we want you to repeat your colonoscopy. 1. No lifting over 20 pounds or strenuous activity for the first 24 hours after your procedure. After 24 hours there are no restrictions on your activity but you may feel fatigued for a few days. 2. After you arrive home you may have a light meal and return to your normal diet as you can tolerate it without feeling sick to your stomach. 3. You may have a bloated, gaseous feeling in your belly (abdomen) after a colonoscopy. Passing gas and belching will help. Walking or lying down on your left side with your knees flexed may relieve the discomfort. Call the office at [phone] (Office) or [phone] (Hospital) right away if you notice any of the following: a.Vomiting of blood or ?coffee ground stools?. b.Rectal bleeding 1Tbsp, blood clots or continuous bleeding. c.Severe belly (abdominal) pain. d.A hard distended belly (abdomen) and an inability to pass gas. 4. Please don?t expect to have a normal BM (bowel movement) for 2-3 days after your procedure. 5. If there are questions regarding the findings of your procedure, please contact your doctor 6. If you are unable to contact your doctor with a problem, contact the hospital at [phone]. 7. Continue all your regular medications unless directed otherwise. I understand the above instructions and have no questions. Signature of Patient or Adult Escort Name of Responsible Adult Escort Signature of Nurse Date/Time Stand Alone Forms: Anesthesia Discharge InstMariah Rios (DSU) Activity:: See above Diet:: See above Discharge Orders Discharge Orders: Discharge Order (Routine); Ordered 03/07/24 Ordered By: Maureen Delarosa DS: Diagnosis Discharge Diagnosis (1) Autonomic dysfunction with type 2 diabetes mellitus: Status: Acute (2) Chronic GERD: Status: Acute (3) Diverticulosis large intestine w/o perforation or abscess w/o bleeding: Status: Acute (4) BPH loc w urin obs/LUTS: Status: Acute (5) Dyspepsia: (6) Hyperlipidemia: (7) Mixed hyperlipidemia: (8) HTN (hypertension): (9) Adenomatous polyps: Status: Acute Asessment and Plan: The patient is seen and examined after their colonoscopy.? The patient has been able to pass gas.? They are not having abdominal pain.? They have been able to tolerate liquids and a snack.? They do not have any nausea or vomiting.? They are not having any chest pain or shortness of breath.??? They are not having any rectal bleeding. Their vital signs have been stable-see nursing notes. We discussed findings during their colonoscopy, and any biopsies that were done/polyps that were removed. The patient will be sent a letter with any biopsy results, and when to repeat the colonoscopy.-see discharge instructions. Patient was given explicit instructions to follow-up regarding colonoscopy-refer to discharge instructions.? We reviewed resumption of medications. Patient verbalized understanding and discharged in stable and satisfactory condition- See nursing notes.
[2024-03-07 11:31] VITALS: BP 170/80; PULSE 69; RESP 18; TEMP 36.7; O2SAT 99
--- NOTE | 2024-03-07 11:50 | NUR.NOTE ---
pt reports that he had called a nurse and taken two glucose tabs today at 0930Nursing Note:
--- NOTE | 2024-03-07 11:56 | ANES.PREOP_ITS ---
General Info Date of Service Date Performed: 03/07/24 Height: 5 ft 4 in Weight: 80 kg Body Mass Index (BMI): 30.2 Surgical Procedure: Operation Date: 03/07/24 10:50 Proposed Procedure Side Surgeon amadeo Delarosa, DO Meds Allergies and Home Medications Allergies Allergy/AdvReac Type Severity Reaction Status Date / Time No Known Allergies Allergy Verified 03/07/24 11:24 Home Medication ?Medication ?Instructions ?Recorded atorvastatin 20 mg tablet 20 mg PO DAILY 10/11/23 citalopram 20 mg tablet 20 mg PO DAILY 10/11/23 insulin glargine 100 unit/mL (3 56 unit subcut HS 02/14/24 mL) subcutaneous pen (Basaglar KwikPen U-100 Insulin) lisinopril 10 mg tablet 10 mg PO DAILY 02/14/24 semaglutide 0.25 mg or 0.5 mg (2 0.5 mg subcut QWEEK 02/14/24 mg/1.5 mL) subcutaneous pen injector (ExTractAppsempic) Current Visit Medications: Current Medications Generic Name Dose Route Start Last Admin Trade Name Freq PRN Reason Stop Dose Admin Hyoscyamine Sulfate 0.125 mg 03/07/24 09:43 Hyoscyamine 0.125 Mg Sl/Oral/Chew SL 04/06/24 09:42 DIRECTED PRN IV Miscellaneous Supplies 1 each 03/07/24 06:00 Iv Access IV 03/07/24 23:59 DIRECTED CONRAD Ondansetron HCl 4 mg 03/07/24 09:43 Ondansetron 4 Mg/2 Ml Vial IVP 04/06/24 09:42 Q4H PRN PRN Nausea / Vomiting Sodium Chloride 0 ml 03/07/24 06:00 Normal Saline Flush 10 Ml Syr IV 03/07/24 23:59 PRN PRN Sodium Chloride 0 ml 03/07/24 06:00 Normal Saline 10 Ml Vial IJ 03/07/24 23:59 DIRECTED PRN Sterile Water 0 ml 03/07/24 06:00 Water,Injection,Sterile 10 Ml Vial IJ 03/07/24 23:59 DIRECTED PRN PFSH Active Problems Active Problems: Problem Status Onset Code Adenomatous polyps Acute D36.9 Sensorineural hearing loss of combined sites, bilateral Acute H90.3 Tinnitus, left Acute H93.12 Chronic GERD Acute K21.9 BPH loc w urin obs/LUTS Acute N40.1 Autonomic dysfunction with type 2 diabetes mellitus Acute E11.43 LLQ abdominal pain Acute R10.32 Diverticulosis large intestine w/o perforation or abscess w/o bleeding Acute K57.30 History of colonoscopy Chronic ~10/08/18 Z98.890 Diabetes Acute E11.9 Cellulitis of leg, right Acute L03.115 Spigelian hernia Acute K43.9 Hernia Inguinal Active 550.90 Medical History Medical History Liver nodule Restless leg Hyperlipidemia History of MRSA infection Enlarged prostate Angina pectoris, unspecified Dyspepsia Cervical disc disease with myelopathy Sleep disorder Osteoarthritis Tubular adenoma of colon Balanitis Dysuria Memory impairment Elevated liver enzymes Depression HTN (hypertension) Mixed hyperlipidemia Anemia Atherosclerotic coronary vascular disease Diabetes mellitus History of angina Surgical History Surgical History Hx of neck surgery plates and screw in neck, per pt. spinal fusion History of cardiac catheterization [facility] [place] Repair of inguinal hernia Amputation (07/14/15) RIGHT INDEX FINGER/DR. ARTEAGA Tobacco Smoking/Tobacco Use Status: Never Alcohol Alcohol Intake: current Alcohol intake frequency: 0-2 drinks per day Alcohol type: beer and hard liquor Substance Use Substance use: Daily Substance use type: marijuana Details: patient states he uses for pain management. Vital Signs and Lab Results Vital Signs Most Recent Vital Signs in EMR: Most Recent Vital Signs Temp Pulse Resp BP Pulse Ox 36.7 C 69 18 170/80 H 99 03/07/24 11:31 03/07/24 11:31 03/07/24 11:31 03/07/24 11:31 03/07/24 11:31 Point of Care Results Point of Care Results: Finger Stick Blood Glucose 137 03/07/24 11:49 Lab Results Blood Type / Crossmatch: No Data to Display Complete Blood Count: No Data to Display Complete Metabolic Panel: No Data to Display Liver Function Panel: No Data to Display Coagulation Panel: 2 No Data to Display Cardiac Panel: No Data to Display Arterial Blood Gas: No Data to Display Venous Blood Gas: No Data to Display Pancreas Panel: No Data to Display Thyroid Panel: No Data to Display Infectious Disease: No Data to Display Blood Cultures: No Data to Display Toxicology Panel: No Data to Display Imaging and Studies Imaging and Studies Study information below may be from another EMR and interpreted by another provider. Please see original notes in EMR for more complete details. Stress Test Summary: 09/02/2018: Impressions: Normal perfusion by [id number] Sestamibi Imaging. Summary: 1. Myocardial perfusion imaging: No myocardial perfusion defects noted. 2. The calculated left ventricular ejection fraction after stress: 64%. 3. Stress: The target heart rate was achieved. Anesthesia Assessment and Plan Anesthesia History Personal History: No History of Anesthesia Complications Family History: No Family History of Anesthesia Complications Exercise Tolerance Exercise Tolerance: Metabolic Equivalents>4 Pertinent Negatives Pertinent Negatives: No Symptoms of GERD, No Major Cardiovascular Symptoms or Complaints and No Major Pulmonary Symptoms or Complaints Cardiac & Pulmonary Exam Cardiac Exam: Normal S1/S2 Heart Sounds Pulmonary Exam: Clear Bilateral Breath Sounds Implantable Cardiac Device Does patient have a Pacemaker or an ICD?: No Airway Exam Known Difficult Airway: No Mallampati Class: 2 Mouth Opening: Normal (> 3cm) Thyromental Distance: Greater than 3 cm Neck Range of Motion: Limited ROM (Cervical plate in place, intermittent shooting sensations down both arms, independent of positioning.) Neck Circumference: Normal Teeth Condition: Normal Dentition ASA Classification ASA Score: ASA 2 Emergency Case?: No NPO Status NPO Status: NPO Clears >2 hours, Solids >8 hours Anesthesia Plan Resuscitation Status: Full Code Anesthesia Technique: General Anesthesia Airway Planned: Natural Airway Monitors Used: Standard Monitors Preoperative Comments:: Negative cardiac cath per patient, was a side effect of Metformin per patient.
[2024-03-07 13:02] VITALS: BMI 30.2
--- NOTE | 2024-03-07 13:44 | BOWEL_PTH ---
PATIENT: Vincent Willett LOC: [facility] U#:[id number] AGE/SX: 69/M ROOM: RE03/07/[address]: Maureen Delarosa : 1955 BED: DIS: 03/07/2024 SPEC #: [id number] RECD: 03/07/24 16:04 STATUS: JUSTINA RECarmela #: [id number] VALERIO: 03/07/24 13:[address]: Maureen Delarosa DEPT: Surgical Specimen RECD BY: Cherry Banks ENTERED: 03/07/24 16:05 SP TYPE: Bowel OTHR DR: Anival Shaver Tissues: 1 - BIOPSY BOWEL 2 - BIOPSY BOWEL Procedures: GROSS AND MICRO LEVEL 4 Comments: [id number]
[2024-03-07 14:09] VITALS: BP 105/75; PULSE 84; RESP 16; TEMP 36.3; O2SAT 96
[2024-03-07 14:39] VITALS: BP 166/86; PULSE 62; RESP 16; TEMP 35.8; O2SAT 98
--- NOTE | 2024-03-07 14:51 | W.ANESPOSTOP ---
Postoperative Evaluation Date, Time and Location Date Performed: 03/07/24 Time Performed: 14:51 Patient Location: Day Surgery Unit Vital Signs Most Recent Imported Vital Signs: Most Recent Vital Signs Temp Pulse Resp BP Pulse Ox 35.8 C L 62 16 166/86 H 98 03/07/24 14:39 03/07/24 14:39 03/07/24 14:39 03/07/24 14:39 03/07/24 14:39 Pain Score Most Recent Pain Score: Most Recent Pain Score Pain Level 0 03/07/24 14:39 Assessment Mental Status: Awake (Alert & Oriented to Patient Baseline) Airway and Respiratory Function: Patent airway with normal (patient baseline) respiratory exam Cardiovascular Function: Hemodynamically Stable Hydration Status: Adequately Hydrated Nausea & Vomiting: No Nausea or Vomiting Pain: Pt. Denies Any Pain Peripheral Nerve Block: Patient did not receive a nerve block
== END 2024-03-07 15:24 | disposition home or self-care (01) ==
LOC: SUR 10:38
PROVIDERS: PCP Physician Assistant; Visit Provider Surgery
PROC: 0DJD8ZZ Inspection of Lower Intestinal Tract, Via Natural or Artificial Opening Endoscopic (ICD-10-PCS; CPT 45378; principal; 2024-03-07 10:45)
DX: Z12.11 Encounter for screening for malignant neoplasm of colon (principal); D12.7 Benign neoplasm of rectosigmoid junction; I10 Essential (primary) hypertension; E11.9 Type 2 diabetes mellitus without complications
CPT/HCPCS: 45385; 45380; 88305; J2704

== ENCOUNTER 2024-07-16 20:09 | Outpatient (REF) | payer MEDICARE, SELFPAY ==
[2024-07-16 15:53] LABS: Hemoglobin A1C 9.8 % (<5.7)
[2024-07-16 16:06] LABS: ALT 38 U/L (16-63); AST 18 U/L (15-37); Albumin 4.2 g/dL (3.4-5.0); Alkaline Phosphatase 75 U/L (46-116); Anion Gap 12.5 mmol/L (3-11); BUN 28 mg/dL (7-18); Bilirubin, Total 0.5 mg/dL (0.2-1.0); CO2 27.5 mmol/L (21.0-32.0); CREATININE 1.1 mg/dL (0.70-1.30); Calcium 9.5 mg/dL (8.5-10.1); Chloride 100 mmol/L (98-107); Estimated GFR 73.12 (mL/min/1.73m2); Glucose 185 mg/dL (74-106); Potassium 4.3 mmol/L (3.5-5.1); Sodium 140 mmol/L (136-145); Total Protein 7.9 g/dL (6.4-8.2)
[2024-07-16 16:26] LABS: Calculated LDL 77 mg/dL (<100); Cholesterol 137 mg/dL (<200); HDL Cholesterol 43 mg/dL (>or=40); Triglyceride 89 mg/dL (<150)
[2024-07-16 23:46] LABS: PSA, Screening 2.8 ng/mL (<=4.5)
== END 2024-07-16 20:10 | disposition home or self-care (01) ==
LOC: NCHCN 20:09
PROVIDERS: PCP Physician Assistant; Visit Provider Physician Assistant
DX: E11.9 Type 2 diabetes mellitus without complications (principal); Z12.5 Encounter for screening for malignant neoplasm of prostate
CPT/HCPCS: 80053; 80061; 84153; 83036

== ENCOUNTER 2024-10-01 13:36 | Outpatient (REF) | payer MEDICARE, SELFPAY ==
[2024-10-01 15:44] LABS: HCT 40.0 % (40.0-50.0); HGB 14.0 g/dL (13.5-17.5); MCH 31.7 pg (27.0-33.0); MCHC 35.0 % (32.0-36.0); MCV 91 fL (80-95); RBC 4.41 10^6/uL (4.36-5.78); RDW 11.8 % (11.8-14.1); RDW-SD 39.3 fL; WBC 7.67 10^3/uL (4.4-10.8)
[2024-10-01 16:15] LABS: Platelet Count 205 10^3/uL (130-400)
[2024-10-01 16:36] LABS: ALT 32 U/L (16-63); AST 14 U/L (15-37); Albumin 4.0 g/dL (3.4-5.0); Alkaline Phosphatase 66 U/L (46-116); Anion Gap 8.5 mmol/L (3-11); BUN 23 mg/dL (7-18); Bilirubin, Total 0.5 mg/dL (0.2-1.0); CO2 28.5 mmol/L (21.0-32.0); Calcium 9.4 mg/dL (8.5-10.1); Chloride 100 mmol/L (98-107); Estimated GFR 96.40 (mL/min/1.73m2); Glucose 221 mg/dL (74-106); Lipase 33 U/L (<78); Potassium 4.3 mmol/L (3.5-5.1); Sodium 137 mmol/L (136-145); Total Protein 7.6 g/dL (6.4-8.2)
== END 2024-10-01 13:37 | disposition home or self-care (01) ==
LOC: NCHCN 13:36
PROVIDERS: PCP Physician Assistant; Visit Provider Physician Assistant
DX: R11.2 Nausea with vomiting, unspecified (principal)
CPT/HCPCS: 80053; 83690; 85027

== ENCOUNTER 2024-11-11 13:41 | Outpatient (CLI) | payer MEDICARE, SELFPAY ==
--- NOTE | 2024-11-11 | DI.US_ITS ---
Exam(s) US ABDOMEN LIMITED EXAM: US ABDOMEN LIMITED CLINICAL HISTORY: R11.2 Nausea vomitting unspecified, Gallbladder TECHNIQUE: Ultrasound abdomen performed using standard protocol. COMPARISON: US ABDOMEN ULTRASOUND (P) from 05/14/[address] ABDOMEN PELVIS W from 07/25/2019 CT scan July 2019 also reviewed. FINDINGS: There is no ascites evident. LIVER: There are no hepatic lesions evident nor dilatation of intrahepatic ducts. GALLBLADDER/BILIARY: There are no gallstones. No gallbladder wall edema nor pericholecystic fluid. The common hepatic duct isnot dilated, measuring 4mm at the level of veronica hepatis. PANCREAS: There is no evidence of pancreatic mass nor dilatation of the pancreatic duct. RIGHT KIDNEY:No evidence of solid mass, calculus, nor hydronephrosis. No cortical cysts evident. IMPRESSION: 1. No evidence of cholelithiasis nor dilatation of the biliary tree. 2. No other significant ultrasound findings in the right upper quadrant. 3. There is no ascites. DATA REPOSITORY:
== END 2024-11-11 14:01 ==
LOC: DI 13:41
PROVIDERS: PCP Physician Assistant; Visit Provider Physician Assistant
DX: R11.2 Nausea with vomiting, unspecified (principal)
CPT/HCPCS: 76705